=== PATIENT | female | born 1975 ===

== ENCOUNTER 2018-12-02 16:45 | Outpatient (CLI) | payer OTHER ==
--- NOTE | 2018-12-02 17:58 | XRay Report ---
FINAL REPORT EXAM: XR TIBIA FIBULA 2V LT HISTORY: LT LOWER LEG PAIN TECHNIQUE: Left lower extremity tibia-fibula two views PRIORS: None. FINDINGS: No fracture is identified. The joint spaces are within normal limits. No focal bony lesion identified . No radiopaque foreign body seen. IMPRESSION: Negative no acute abnormality.
== END 2018-12-02 16:46 | disposition home or self-care (01) ==
LOC: XRAY 16:45
PROVIDERS: ATTEND Internal Medicine
DX: M79.662 Pain in left lower leg (principal)